=== PATIENT | female | born 1950 | race Caucasian/White ===

== ENCOUNTER 2017-01-30 12:05 | Emergency (ER) | payer MEDICARE ==
[~2017-01-30] VITALS: Ht 154.9 cm; Wt 44.0 kg
[~2017-01-30 12:05] MED LIST: ENAL20TA PO; GABA100C4 PO; HYDR12.56 PO; LACTCAP8 PO; OMEP20TA PO; VESI5TAB PO
[2017-01-30 12:10] VITALS: BP 154/73; PULSE 92; RESP 18; TEMP 98.4; O2SAT 99
[2017-01-30] MEDS ORDERED: HYOS0.128 PO (12:25)
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
[2017-01-30] MEDS ORDERED: METHOCARBAMOL 500 MG TAB PO ONE (13:00)
[2017-01-30] MEDS ORDERED: ACETAMINOPHEN/CODEINE 300 MG/30 MG TAB PO ONE (13:00)
--- NOTE | 2017-01-30 14:02 | RADRPT ---
EXAM DATE/TIME: 01/30/2017 13:27 [facility] COMPARISON: No previous studies available for comparison. INDICATIONS : Fall, low back pain. MEDICAL HISTORY : None. SURGICAL HISTORY : None. ENCOUNTER: Initial ACUITY: 3 weeks PAIN SCORE: 8/10 LOCATION: low back FINDINGS: Straightening of the lumbar lordosis. Severe disc space narrowing at L4-5 and L5-S1 with endplate scl erosis and osteophytosis. Mild facet hypertrophic changes. Aortic calcifications. CONCLUSION: Degenerative changes and atherosclerosis. Rush Irizarry MD on January 30, 2017 at 14:00 Board Certified Radiologist. This report was verified electronically.
--- NOTE | 2017-01-30 14:05 | RADRPT ---
EXAM DATE/TIME: 01/30/2017 13:24 [facility] COMPARISON: No previous studies available for comparison. INDICATIONS : Fall, right hip pain. MEDICAL HISTORY : None. SURGICAL HISTORY : None. ENCOUNTER: Initial ACUITY: 3 weeks PAIN SCORE: 8/10 LOCATION: Right hip FINDINGS: Examination of the right hip was performed with AP Pelvis. The primary and secondary trabecular forest emilia of the femoral neck is intact. The hip joint is of normal width without significant sclerosis or bony hypertrophy. The acetabulum is grossly intact. CONCLUSION: No acute disease. Rush Irizarry MD on January 30, 2017 at 14:04 Board Certified Radiologist. This report was verified electronically.
[2017-01-30 14:13] VITALS: RESP 18
[2017-01-30] MEDS ORDERED: ROBA750T PO (14:18)
[2017-01-30] MEDS ORDERED: IBUP-232 PO (14:18)
[2017-02-06] MEDS ORDERED: HYDR12.56 PO (15:31)
[2017-02-12] MEDS ORDERED: KETO60IN6 IM (13:53)
[2017-02-12] MEDS ORDERED: METH125I2 IM (13:53)
== END 2017-01-30 14:38 | disposition home or self-care (01) ==
LOC: PHEFT 12:05
DX: M54.41 Lumbago with sciatica, right side (principal); M25.551 Pain in right hip; I10 Essential (primary) hypertension; E78.00 Pure hypercholesterolemia, unspecified; W01.0XXA Fall on same level from slipping, tripping and stumbling without subsequent striking against object, initial encounter; Z72.0 Tobacco use; Z87.39 Personal history of other diseases of the musculoskeletal system and connective tissue; Z86.59 Personal history of other mental and behavioral disorders; Z87.19 Personal history of other diseases of the digestive system; Z87.442 Personal history of urinary calculi; Z86.69 Personal history of other diseases of the nervous system and sense organs
CPT/HCPCS: 72100; 73502; 99284

== ENCOUNTER 2017-02-02 13:34 | Emergency (ER) | payer MEDICAID, MEDICARE ==
[~2017-02-02] VITALS: Ht 154.9 cm; Wt 43.0 kg
[~2017-02-02 13:34] MED LIST changes: +HYOS0.128 PO; +IBUP-232 PO; +ROBA750T PO
[2017-02-02 13:40] VITALS: BP 155/73; PULSE 75; RESP 16; TEMP 98.6; O2SAT 97
[2017-02-02] MEDS ORDERED: TYLETAB34 PO (14:06)
[2017-02-02] MEDS ORDERED: LIDO1PAD52 TOPICAL (14:06)
[2017-02-02] MEDS ORDERED: ZOFR4TAB PO (14:06)
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
[2017-02-02] MEDS ORDERED: ONDANSETRON ODT 4 MG TAB PO ONE (14:15)
[2017-02-02] MEDS ORDERED: ACETAMINOPHEN/CODEINE 300 MG/30 MG TAB PO ONE (14:15)
[2017-02-06] MEDS ORDERED: HYDR12.56 PO (15:31)
[2017-02-12] MEDS ORDERED: METH125I2 IM (13:53)
[2017-02-12] MEDS ORDERED: KETO60IN6 IM (13:53)
== END 2017-02-02 14:56 | disposition home or self-care (01) ==
LOC: PHEFT 13:34
DX: M54.17 Radiculopathy, lumbosacral region (principal); I10 Essential (primary) hypertension; G62.9 Polyneuropathy, unspecified
CPT/HCPCS: 99284